=== PATIENT | female | born 1955 | race American Indian/Alaskan Native ===

== ENCOUNTER 2019-12-18 19:59 | Emergency (ER) | payer SELFPAY ==
--- NOTE | 2019-12-18 21:11 | Event Note ---
ED Screening Note Date of service: 12/18/19 Time: 21:06 ED Screening Note: This is a 64 y.o. F. that presents to the ER with recurrent epistaxis for 2 days. Reports headache with associated symptoms. PMH of HTN and COPD. Current smoker Patient states PCP at [facility] discontinued HTN medication 1 year ago. Denies chest pain, visual changes, palpitations This initial assessment/diagnostic orders/clinical plan/treatment(s) is/are subject to change based on patients health status, clinical progression and re- assessment by fellow clinical providers in the ED. Further treatment and workup at subsequent clinical providers discretion. Patient/guardian urged not to elope from the ED as their condition may be serious if not clinically assessed and managed. Initial orders include: CMP
[2019-12-18 21:53] LABS: Alanine Aminotransferase 11 units/L (7-56); Albumin 4.1 g/dL (3.9-5); BUN/Creatinine Ratio 21; Blood Urea Nitrogen 17 mg/dL (7-17); Calcium 9.1 mg/dL (8.4-10.2); Hemolysis Index 19
[2019-12-19 03:53] VITALS: BP 151/91
--- NOTE | 2019-12-19 04:36 | Emergency Department Report ---
ED ENT HPI - General Chief complaint: Nosebleed Stated complaint: NOSE BLEEDS X 2 DAYS Time Seen by Provider: 12/18/19 21:06 Source: patient Mode of arrival: Ambulatory Limitations: No Limitations - History of Present Illness Initial comments: 64-year-old female presents to ED with report of spontaneous, intermittent nosebleeds x3 days. Patient denies rubbing, picking, blowing her nose. Patient's blood pressure elevated at triage. She states her PCP took her off her blood pressure medications 2 years ago. Patient has been followed regularly by her primary care physician, states she had an appointment 2 months ago and her blood pressure was fine. MD complaint: epistaxis -: days(s) (2) Location: nose Severity: moderate Consistency: intermittent, now resolved Improves with: pressure Worsens with: none Associated Symptoms: denies: fever, sore throat, rhinorrhea - Related Data Allergies Allergy/AdvReac Type Severity Reaction Status Date / Time doxycycline Allergy Swelling Verified 12/18/19 21:13 prochlorperazine Allergy Swelling Verified 12/18/19 21:12 [From Compazine] Tetracyclines Allergy Swelling Verified 12/18/19 21:13 ED Dental HPI - General Chief complaint: Nosebleed Stated complaint: NOSE BLEEDS X 2 DAYS Time Seen by Provider: 12/18/19 21:06 Source: patient Mode of arrival: Ambulatory Limitations: No Limitations - Related Data Allergies Allergy/AdvReac Type Severity Reaction Status Date / Time doxycycline Allergy Swelling Verified 12/18/19 21:13 prochlorperazine Allergy Swelling Verified 12/18/19 21:12 [From Compazine] Tetracyclines Allergy Swelling Verified 12/18/19 21:13 ED Review of Systems ROS: Stated complaint: NOSE BLEEDS X 2 DAYS Other details as noted in HPI Comment: All other systems reviewed and negative Constitutional: denies: fever ENT: epistaxis. denies: throat pain ED Past Medical Hx - Past Medical History Previous Medical History?: Yes Hx Hypertension: Yes Hx COPD: Yes - Surgical History Past Surgical History?: Yes Additional Surgical History: Hysterectomy. Abdominal surgery. - Social History Smoking Status: Current Every Day Smoker Substance Use Type: None ED Physical Exam - General Limitations: No Limitations General appearance: alert, in no apparent distress - Head Head exam: Present: atraumatic, normocephalic - Eye Eye exam: Present: normal appearance, EOMI - ENT ENT exam: Present: mucous membranes moist, other (dried blood in left nare, no active bleeding) - Neck Neck exam: Present: normal inspection - Respiratory Respiratory exam: Present: normal lung sounds bilaterally. Absent: respiratory distress - Cardiovascular Cardiovascular Exam: Present: regular rate, normal rhythm - GI/Abdominal GI/Abdominal exam: Present: soft. Absent: distended, tenderness - Extremities Exam Extremities exam: Present: normal inspection - Neurological Exam Neurological exam: Present: alert, oriented X3 - Psychiatric Psychiatric exam: Present: normal affect, normal mood - Skin Skin exam: Present: warm, dry, intact, normal color ED Course Vital Signs 12/18/19 12/19/19 20:11 03:52 Temperature 98.4 F Pulse Rate 85 77 Respiratory 18 16 Rate Blood Pressure 178/130 Blood Pressure 151/91 [Right] O2 Sat by Pulse 97 Oximetry ED Medical Decision Making - Lab Data Result diagrams: 12/18/19 21:18 - Medical Decision Making There is no active bleeding present at this time. Repeat blood pressure improved. Patient advised to monitor her blood pressure and follow-up with her PCP. Patient given information for ENT referral. Return precautions given. - Differential Diagnosis Epistaxis Critical care attestation.: If time is entered above; I have spent that time in minutes in the direct care of this critically ill patient, excluding procedure time. ED Disposition Clinical Impression: Epistaxis Disposition: DC-01 TO HOME OR SELFCARE Is pt being admited?: No Condition: Stable Instructions: Epistaxis (ED) Referrals: PRIMARY CARE, [Primary Care Provider] - 3-5 Days MIREYA TAY MD [Staff Physician] - 3-5 Days Time of Disposition: 04:51
[2019-12-19] MEDS ORDERED: OXYMETAZOLINE 0.05% NASAL SPRAY NS ONE (04:51)
== END 2019-12-19 05:51 | disposition home or self-care (01) ==
LOC: ED 19:59
DX: R04.0 Epistaxis (principal); I10 Essential (primary) hypertension; J44.9 Chronic obstructive pulmonary disease, unspecified; F17.200 Nicotine dependence, unspecified, uncomplicated; Z90.710 Acquired absence of both cervix and uterus; Z98.890 Other specified postprocedural states; Z88.1 Allergy status to other antibiotic agents; Z88.8 Allergy status to other drugs, medicaments and biological substances
CPT/HCPCS: 36415; 80053